=== PATIENT | male | born 1975 | race Caucasian/White ===

== ENCOUNTER 2019-04-22 14:22 | Emergency (ER) | payer OTHER ==
[~2019-04-22] VITALS: Ht 182.9 cm; Wt 127.0 kg
[~2019-04-22 14:22] MED LIST: CYCL10TA9 PO; GABA-488 PO; HEARTBURN MEDICATION PO; LISI-552 PO; NAPR-1070 PO; TRAM50TA2 PO
[2019-04-22] MEDS ORDERED: OMEP20TA7 PO (14:45)
[2019-04-22] MEDS ORDERED: ATOR10TA66 PO (14:45)
--- NOTE | 2019-04-22 15:07 | NUR ---
pt here by self alert gcs 15. in [place] pt at 1508. pt relates was at work yesterday and was c/o chest pain ,abd pain, dyspnea, sweating, n/v, bp was high. hr was 150. pt was sent home and said he couldnt come in here yesterday. currently pt somewhat vague with answers but c/o chest " prssure" rating 2. denies abd pain. denies dyspnea and no acute sighns of dyspnea noted. lungs cta bilaterally. abd soft and distended. pt says he feels " bloated". neg pain with palpation and neg pulsating massess notd. neg edema noted. tele applied by me shows st 103. bp machine is 147/97 p ox r/a is 95. done [place] pt at 1511.
[2019-04-22] MEDS ORDERED: ASPIRIN 81 MG CHEW (CHILDREN'S ASA) PO ONE (15:15)
--- NOTE | 2019-04-22 15:16 | ED Cardiac General ---
History of Present Illness General Chief Complaint: Cardiac/General Problems Stated Complaint: BP ISSUES Nursing Triage Note: PATIENT STATES THAT YESTERDAY AT WORK HE HAD AN EPISODE WHERE HE FELT HOT, HAD CHEST PAIN, DIAPHORESIS, TACHYCARDIA AND VOMITING. IT WAS ALSO NOTED THAT HE WAS PALE. HE DOES NOT RECALL HAVING PROBLEMS WITH THIS IN THE PAST AND FEELS BETTER TODAY. Source: patient Exam Limitations: no limitations History of Present Illness Date Seen by Provider: Apr 22, 2019 Time Seen by Provider: 15:12 Initial Comments To ER by private vehicle with reports of chest pain yesterday, nausea vomiting diaphoresis and general malaise yesterday. He states that at one point his blood pressure was up to 141/110 and his heart rate was up to 150. The symptoms occurred while he was at work at [employer]. They advised him to come to the hospital yesterday when he was expressing these symptoms but he chose not to, they again insisted that he be evaluated today even in the absence of symptoms, he finally decided to come to the emergency room today. He states that he doesn't feel completely back to normal but he does not have any chest pain or nausea today, just feels a little "off". He has a history of high cholesterol, smoking, obesity. He has a family history of heart disease. Timing/Duration: changing over time, resolved prior to arrival Severity: moderate Activities at Onset: none Prior CP/Workup: no prior cardiac workup NTG SL PRACTICE SPECIALIST: No ASA po PRACTICE SPECIALIST: No Associated Systoms: Diaphoresis, Nausea/Vomiting Allergies and Home Medications Allergies Coded Allergies: No Known Drug Allergies (Unverified , 12/07/12) Home Medications Atorvastatin Calcium Unknown Strength Tablet, Unknown Dose PO HS, (Reported) Gabapentin 300 Mg Capsule, 300 MG PO DAILY, (Reported) Lisinopril 20 Mg Tablet, 20 MG PO DAILY, (Reported) Tramadol HCl 50 Mg Tablet, 50 MG PO PRN, (Reported) Patient Home Medication List Home Medication List Reviewed: Yes Review of Systems Review of Systems Constitutional: see HPI, diaphoresis EENTM: No Symptoms Reported Respiratory: No Symptoms Reported Cardiovascular: See HPI, Chest Pain Gastrointestinal: See HPI, Nausea Genitourinary: No Symptoms Reported Musculoskeletal: no symptoms reported Skin: no symptoms reported Psychiatric/Neurological: No Symptoms Reported Endocrine: No Symptoms Reported Past Jmlpjdm-Tyqfra-Edvgtg Hx Patient Social History Alcohol Use: Denies Use Recreational Drug Use: No Smoking Status: Current Everyday Smoker Type Used: Cigarettes 2nd Hand Smoke Exposure: Yes Recent Foreign Travel: No Contact w/Someone Who Travel: No Recent Infectious Disease Expo: No Immunizations Up To Date Date of Influenza Vaccine: Jun 15, 2015 Seasonal Allergies Seasonal Allergies: Yes Past Medical History Surgeries: Yes (RECONSTRUCTIVE FACIAL SURGERY, HERNIA) Abdominal Respiratory: Yes (CHILDHOOD ASTHMA) Asthma Cardiac: Yes Hypertension Neurological: No Gastrointestinal: Yes Gastroesophageal Reflux Musculoskeletal: Yes (CHRONIC NECK AND BACK PAIN ) Degenerate Disk Disease, Chronic Back Pain Endocrine: No Cancer: No Psychosocial: No Integumentary: No Blood Disorders: No Physical Exam Vital Signs Vital Signs - First Documented 04/22/19 14:38 Temp 96.7 Pulse 105 Resp 20 B/P (MAP) 136/94 (108) Pulse Ox 97 Capillary Refill : Less Than 3 Seconds Height, Weight, BMI Height: 6'0" Weight: 280lbs. 0oz. 127.724849vd; 36.68 BMI Method:Actual General Appearance: No Apparent Distress, WD/WN HEENT: PERRL/EOMI, TMs Normal Respiratory: No Accessory Muscle Use, No Respiratory Distress Cardiovascular: Regular Rate, Rhythm, Normal Peripheral Pulses Gastrointestinal: Normal Bowel Sounds, Non Tender, Soft Extremity: Non Tender, No Calf Tenderness Neurologic/Psychiatric: Alert, Oriented x3 Skin: Normal Color, Warm/Dry Progress/Results/Core Measures Results/Orders Lab Results Laboratory Tests Test 04/22/19 15:15 Range/Units White Blood Count 8.2 4.3-11.0 10^3/uL Red Blood Count 4.88 4.35-5.85 10^6/uL Hemoglobin 14.8 13.3-17.7 G/DL Hematocrit 43 40-54 % Mean Corpuscular Volume 87 80-99 FL Mean Corpuscular Hemoglobin 30 25-34 PG Mean Corpuscular Hemoglobin Concent 35 32-36 G/DL Red Cell Distribution Width 13.2 10.0-14.5 % Platelet Count 265 130-400 10^3/uL Mean Platelet Volume 10.4 7.4-10.4 FL Neutrophils (%) (Auto) 55 42-75 % Lymphocytes (%) (Auto) 32 12-44 % Monocytes (%) (Auto) 8 0-12 % Eosinophils (%) (Auto) 5 0-10 % Basophils (%) (Auto) 1 0-10 % Neutrophils # (Auto) 4.6 1.8-7.8 X 10^3 Lymphocytes # (Auto) 2.6 1.0-4.0 X 10^3 Monocytes # (Auto) 0.6 0.0-1.0 X 10^3 Eosinophils # (Auto) 0.4 H 0.0-0.3 10^3/uL Basophils # (Auto) 0.0 0.0-0.1 10^3/uL Prothrombin Time 11.9 L 12.2-14.7 SEC INR Comment 0.9 0.8-1.4 Activated Partial Thromboplast Time 26 24-35 SEC Sodium Level 138 135-145 MMOL/L Potassium Level 4.3 3.6-5.0 MMOL/L Chloride Level 104 98-107 MMOL/L Carbon Dioxide Level 28 21-32 MMOL/L Anion Gap 6 5-14 MMOL/L Blood Urea Nitrogen 19 H 7-18 MG/DL Creatinine 0.78 0.60-1.30 MG/DL Estimat Glomerular Filtration Rate > 60 BUN/Creatinine Ratio 24 Glucose Level 99 70-105 MG/DL Calcium Level 9.8 8.5-10.1 MG/DL Corrected Calcium 9.6 8.5-10.1 MG/DL Magnesium Level 1.6 1.6-2.4 MG/DL Total Bilirubin 0.2 0.1-1.0 MG/DL Aspartate Amino Transf (AST/SGOT) 17 5-34 U/L Alanine Aminotransferase (ALT/SGPT) 25 0-55 U/L Alkaline Phosphatase 104 40-136 U/L Myoglobin 32.2 10.0-92.0 NG/ML Troponin I < 0.028 <0.028 NG/ML B-Type Natriuretic Peptide < 10.0 <100.0 PG/ML Total Protein 7.0 6.4-8.2 GM/DL Albumin 4.3 3.2-4.5 GM/DL Lipase 20 8-78 U/L My Orders Orders - GARO STEWARD APRN Cbc With Automated Diff (04/22/19 15:11) Magnesium (04/22/19 15:11) Chest 1 View, Ap/Pa Only (04/22/19 15:11) Ekg Tracing (04/22/19 15:11) Cardiac Profile 1 (04/22/19 15:11) Comprehensive Metabolic Panel (04/22/19 15:11) Myoglobin Serum (04/22/19 15:11) Protime With Inr (04/22/19 15:11) Partial Thromboplastin Time (04/22/19 15:11) O2 (04/22/19 15:11) Monitor-Rhythm Ecg Trace Only (04/22/19 15:11) Lipid Panel (04/23/19 06:00) Ed Iv/Invasive Line Start (04/22/19 15:11) Lipase (04/22/19 15:11) BNP (04/22/19 15:11) Aspirin Chewable Tablet (Baby Aspirin Ch (04/22/19 15:15) Medications Given in ED Current Medications Medications Dose Ordered Sig/Jacey Route Start Time Stop Time Status Last Admin Dose Admin Aspirin 324 mg ONCE ONCE PO 04/22/19 15:15 04/22/19 15:16 DC 04/22/19 15:23 324 MG Vital Signs/I&O 04/22/19 14:38 Temp 96.7 Pulse 105 Resp 20 B/P (MAP) 136/94 (108) Pulse Ox 97 Blood Pressure Mean: 108 Departure Communication (Admissions) 1621-discussed observation and repeat troponin at the two-hour jack with patient. He does not want to wait, he'll return for any recurrence of symptoms and follow-up with Dr. Neely on Saturday. Impression Primary Impression: Chest pain Qualified Codes: R07.9 - Chest pain, unspecified Disposition: 01 HOME, SELF-CARE Condition: Stable Departure-Patient Inst. Decision time for Depature: 16:13 Referrals: NATE NEELY MD ,LOCAL PHYSICIAN (PCP) Primary Care Physician Patient Instructions: Chest Pain Add. Discharge Instructions: 1. I made an appointment for you with Dr. Neely on 04/27/19 at 12:50 PM. All discharge instructions reviewed with patient and/or family. Voiced understanding. Copy Copies To 1: NATE NEELY MD, PETER J APRN Apr 22, 2019 15:15
--- NOTE | 2019-04-22 15:17 | NUR ---
labs to lab by me
[2019-04-22 15:21] LABS: BASOPHILS % (AUTO) 1 % (0-10); EOSINOPHILS # (AUTO) 0.4 10^3/uL (0.0-0.3); EOSINOPHILS % (AUTO) 5 % (0-10); HEMATOCRIT 43 % (40-54); HEMOGLOBIN 14.8 G/DL (13.3-17.7); LYMPHOCYTES # (AUTO) 2.6 X 10^3 (1.0-4.0); LYMPHOCYTES % (AUTO) 32 % (12-44); MEAN CORPUSCULAR HEMOGLOBIN 30 PG (25-34); MEAN CORPUSCULAR HGB CONC 35 G/DL (32-36); MEAN CORPUSCULAR VOLUME 87 FL (80-99); MEAN PLATELET VOLUME 10.4 FL (7.4-10.4); MONOCYTES # (AUTO) 0.6 X 10^3 (0.0-1.0); MONOCYTES % (AUTO) 8 % (0-12); NEUTROPHILS # (AUTO) 4.6 X 10^3 (1.8-7.8); NEUTROPHILS % (AUTO) 55 % (42-75); PLATELET COUNT 265 10^3/uL (130-400); RED CELL DISTRIBUTION WIDTH 13.2 % (10.0-14.5); WHITE BLOOD COUNT 8.2 10^3/uL (4.3-11.0)
--- NOTE | 2019-04-22 15:27 | NUR ---
ekg by me
[2019-04-22 15:40] LABS: INR 0.9 (0.8-1.4); PROTHROMBIN TIME PATIENT 11.9 SEC (12.2-14.7)
--- NOTE | 2019-04-22 15:40 | Diagnostic Imaging Report ---
INDICATION: Hypertension. EXAMINATION: Portable chest at 3:31 p.m. FINDINGS: Heart size and pulmonary vascularity are normal. Lungs are clear. There are no effusions or pneumothoraces. IMPRESSION: Negative chest. Dictated by: Dictated on workstation # [id number]
[2019-04-22 15:43] LABS: ALANINE AMINOTRANSFERASE 25 U/L (0-55); ALBUMIN 4.3 GM/DL (3.2-4.5); ALKALINE PHOSPHATASE 104 U/L (40-136); BILIRUBIN,TOTAL 0.2 MG/DL (0.1-1.0); BUN/CREATININE RATIO 24; CALCIUM 9.8 MG/DL (8.5-10.1); CARBON DIOXIDE 28 MMOL/L (21-32); CHLORIDE 104 MMOL/L (98-107); CREATININE SERUM 0.78 MG/DL (0.60-1.30); GFR ESTIMATED > 60; GLUCOSE 99 MG/DL (70-105); LIPASE 20 U/L (8-78); MAGNESIUM 1.6 MG/DL (1.6-2.4); POTASSIUM 4.3 MMOL/L (3.6-5.0); SODIUM 138 MMOL/L (135-145)
--- NOTE | 2019-04-22 15:58 | NUR ---
Rosanna quintana in [facility] - 04/22/19 at 1600 by [id number] i got a hold of pharmacy
--- NOTE | 2019-04-22 16:18 | NUR ---
Note undone in EDM - 04/22/19 at 1620 by [id number] both parents in room. pt sleeping w/o sighns of dyspnea noted. parents relate no more seizures since the ativan. ausc hr 120 reg ausc resp 24 normalrecheck temp 97.8 p ox r/a is 97. i called floor for mini infuser for antibiotic.
--- NOTE | 2019-04-22 16:24 | NUR ---
apparantely no 2nd trop now. pt is ok to d/c v/o
[2019-04-22 16:33] VITALS: BP 124/85
--- NOTE | 2019-04-22 16:33 | NUR ---
d/c instructions to pt. no scripts given. pt left ambulatory by self. pt knows f/u. i did not go over positive handtyped by dr information on the chart. pt said he read it after i went to cause pt requested work release. work release given. pt said d/cd his iv. pt already off tele as well. d/c vs bp machine is 124/85 ausc hr 100 reg ausc resp 20 normal recheck temp 97.5 p ox r/a is 94. pt said he couldnt wait for 2nd trop and had to leave now.
== END 2019-04-22 16:33 | disposition home or self-care (01) ==
LOC: EDUNIT# 14:22 → ER 14:23
DX: R07.9 Chest pain, unspecified (principal); E78.00 Pure hypercholesterolemia, unspecified; E66.9 Obesity, unspecified; J45.909 Unspecified asthma, uncomplicated; I10 Essential (primary) hypertension; K21.9 Gastro-esophageal reflux disease without esophagitis; F17.210 Nicotine dependence, cigarettes, uncomplicated; Z82.49 Family history of ischemic heart disease and other diseases of the circulatory system; Z98.890 Other specified postprocedural states; Z68.38 Body mass index [BMI] 38.0-38.9, adult
CPT/HCPCS: 36415; 71045; 80053; 83690; 83735; 83874; 83880; 84484; 85025; 85610; 85730; 93005; 93041

== ENCOUNTER → 2020-07-13 | Outpatient (CLI) | payer SELFPAY ==
[~2020-07-13] MED LIST changes: +ATOR10TA66 PO; +OMEP20TA7 PO; -TRAM50TA2 PO; +TRM50T PO
--- NOTE | 2020-07-13 16:07 | Diagnostic Imaging Report ---
PROCEDURE: MR imaging cervical spine without contrast. TECHNIQUE: Multiplanar, multisequence MR imaging of the cervical spine was performed without contrast. INDICATION: Increasing neck pain. No prior studies are available for comparison. Curvature and alignment of the cervical spine is normal. Vertebral body marrow signal is normal. No geographic marrow lesion is seen. There is some mild disc desiccation noted but disc heights are fairly well-maintained. Cervical cord shows normal homogeneous signal intensity with normal morphology. Craniocervical junction is unremarkable. C2-C3: Central canal is patent. Neural foramina are patent. C3-C4: Endplate osteophytes indent the ventral thecal sac but central canal and neural foramina remain patent. C4-C5: Central canal and neural foramina are widely patent. C5-C6: Broad-based disc/osteophyte complex flattens the ventral thecal sac. There is very mild narrowing of the canal. Neural foramina appear patent. C6-C7: Endplate osteophytes indent the ventral thecal sac and produce mild narrowing of the central canal. Neural foramina are patent. C7-T1: Central canal and neural foramina are widely patent. IMPRESSION: Generalized cervical spondylosis. There is mild central canal narrowing described level by level above. No focal disc protrusion or neural foraminal stenosis is identified. Dictated by: Dictated on workstation # [id number]
--- NOTE | 2020-07-13 16:07 | Diagnostic Imaging Report ---
INDICATION: Back pain and left arm numbness. TECHNIQUE: Multiplanar, multisequence imaging of the thoracic spine was performed without contrast. COMPARISON: No prior studies are available for comparison. FINDINGS: Curvature and alignment of the thoracic spine is normal. Vertebral body heights are well-maintained. No geographic marrow lesion is identified apart from a probable benign hemangiolipoma within the T7 vertebral body. There is some generalized thoracic degenerative disc disease with variable disc space narrowing and desiccation. Minimal left paramidline disc bulge is identified at the T3-T4 level but no central canal or neural foraminal narrowing is seen. Minimal midline disc bulge T5-T6 levels noted but no central canal narrowing is seen. A left para-midline disc bulge at T7-T8 level does indent the ventral thecal sac but no significant central canal or neural foraminal narrowing is seen. Neural foramina are patent. Paraspinous tissues are unremarkable. IMPRESSION: Generalized thoracic spondylosis with mild disc bulging described level by level above. However, no resultant central canal or neural foraminal narrowing is identified. Dictated by: Dictated on workstation # [id number]
--- NOTE | 2020-07-13 16:12 | Diagnostic Imaging Report ---
PROCEDURE: MRI lumbar spine. TECHNIQUE: Multiplanar, multisequence MRI of the lumbar spine was performed without contrast. INDICATION: Back pain and left arm numbness. COMPARISON: No prior studies are available for comparison. FINDINGS: Curvature and alignment of the lumbar spine is normal. Vertebral body heights are maintained. No acute compression fracture is seen. No geographic marrow lesion is seen. There is some desiccation of the discs at L3-L4, L4-L5, and L5-S1 levels. Conus is unremarkable at the L1-L2 level. T12-L1: Central canal and neuroforamina are widely patent. L1-L2: Central canal and neuroforamina appear widely patent. L2-L3: Central canal and neuroforamina are patent. L3-L4: Broad-based disc/osteophyte complex flattens the ventral thecal sac. There is also ligamentous thickening and facet changes. This does create some mild trefoil narrowing of the central canal. There is also moderate narrowing of the lateral recesses bilaterally. There is also moderate bilateral neuroforaminal narrowing. L4-L5: Broad-based disc/osteophyte complex indents the ventral thecal sac. This produces mild narrowing of the central canal. There is significant narrowing of bilateral lateral recesses. There is also moderate bilateral neuroforaminal narrowing. L5-S1: Broad-based disc bulging is present but central canal remains patent. Lateral recesses show moderate narrowing. There is also moderate bilateral neuroforaminal narrowing. Paraspinous tissues are unremarkable. IMPRESSION: Lower lumbar spondylosis with mild central canal, lateral recess, and neuroforaminal narrowing, described level by level above. Dictated by: Dictated on workstation # [id number]
== END ==
LOC: RAD 14:45
PROVIDERS: ATTEND Nurse Practitioner
DX: M47.812 Spondylosis without myelopathy or radiculopathy, cervical region (principal); M47.814 Spondylosis without myelopathy or radiculopathy, thoracic region; M47.816 Spondylosis without myelopathy or radiculopathy, lumbar region; M51.24 Other intervertebral disc displacement, thoracic region; M48.02 Spinal stenosis, cervical region; M48.061 Spinal stenosis, lumbar region without neurogenic claudication
CPT/HCPCS: 72141; 72146; 72148

== ENCOUNTER 2021-05-22 16:36 | Emergency (ER) | payer SELFPAY ==
[~2021-05-22] VITALS: Ht 182.8 cm; Wt 117.0 kg
[~2021-05-22 16:36] MED LIST changes: -LISI-552 PO; +LISI20TA26 PO
[2021-05-22] MEDS ORDERED: ASPIRIN 81 MG CHEW (CHILDREN'S ASA) ONE (16:42)
[2021-05-22] MEDS ORDERED: NITROGLYCERIN 0.4 MG SL TABS BTL 25'S SL ONE (16:42)
[2021-05-22] MEDS ORDERED: ASPIRIN 81 MG CHEW (CHILDREN'S ASA) PO ONE (17:00)
--- NOTE | 2021-05-22 17:01 | ED Chest Pain ---
General Chief Complaint: Chest Pain Stated Complaint: CHEST PAIN Source: patient Exam Limitations: no limitations History of Present Illness Date Seen by Provider: May 22, 2021 Time Seen by Provider: 16:40 Initial Comments This is a 45-year-old male presented to the ER with complaints of midsternal chest pain that started around 2:00 this afternoon. States that pain went away abruptly and returned again approximate 30 minutes prior to arrival. Describes as pressure that radiates into his back and down both of his arms. Allergies and Home Medications Allergies Coded Allergies: No Known Drug Allergies (Unverified , 12/07/12) Patient Home Medication List Atorvastatin Calcium (Atorvastatin Calcium) Unknown Strength Tablet, Unknown Dose PO HS, (Reported) Entered as Reported by: SHIRA DIOP on 04/22/19 1445 Gabapentin (Gabapentin) 300 Mg Capsule, 300 MG PO DAILY, (Reported) Entered as Reported by: THOMAS TIDWELL on 11/16/15 1203 Lisinopril (Lisinopril) 20 Mg Tablet, 20 MG PO DAILY, (Reported) Entered as Reported by: THOMAS TIDWELL on 11/16/15 1203 Omeprazole (Omeprazole) Unknown Strength Tablet.dr, Unknown Dose PO, (Reported) Entered as Reported by: SHIRA DIOP on 04/22/19 1445 Tramadol HCl (Tramadol HCl) 50 Mg Tablet, 50 MG PO PRN, (Reported) Entered as Reported by: THOMAS TIDWELL on 11/16/15 1203 Past Dzievbl-Yojgza-Uspjlx Hx Seasonal Allergies Seasonal Allergies: Yes Past Medical History Surgeries: Yes (RECONSTRUCTIVE FACIAL SURGERY, HERNIA) Abdominal Respiratory: Yes (CHILDHOOD ASTHMA) Asthma Cardiac: Yes Hypertension Neurological: No Gastrointestinal: Yes Gastroesophageal Reflux Musculoskeletal: Yes (CHRONIC NECK AND BACK PAIN ) Degenerate Disk Disease, Chronic Back Pain Endocrine: No Cancer: No Psychosocial: No Integumentary: No Blood Disorders: No Physical Exam Vital Signs Vital Signs - First Documented 05/22/21 16:44 Temp 36.3 Pulse 95 Resp 19 B/P (MAP) 138/90 (106) Pulse Ox 94 O2 Delivery Room Air Capillary Refill : Height, Weight, BMI Height: 6'0" Weight: 280lbs. 0oz. 127.189041bf; 36.68 BMI Method:Actual Progress/Results/Core Measures Results/Orders Lab Results Laboratory Tests Test 05/22/21 16:44 05/22/21 19:16 Range/Units White Blood Count 9.6 4.3-11.0 10^3/uL Red Blood Count 5.10 4.30-5.52 10^6/uL Hemoglobin 15.7 13.3-17.7 g/dL Hematocrit 45 40-54 % Mean Corpuscular Volume 88 80-99 fL Mean Corpuscular Hemoglobin 31 25-34 pg Mean Corpuscular Hemoglobin Concent 35 32-36 g/dL Red Cell Distribution Width 12.4 10.0-14.5 % Platelet Count 302 130-400 10^3/uL Mean Platelet Volume 9.9 9.0-12.2 fL Immature Granulocyte % (Auto) 0 % Neutrophils (%) (Auto) 63 42-75 % Lymphocytes (%) (Auto) 26 12-44 % Monocytes (%) (Auto) 6 0-12 % Eosinophils (%) (Auto) 3 0-10 % Basophils (%) (Auto) 1 0-10 % Neutrophils # (Auto) 6.0 1.8-7.8 10^3/uL Lymphocytes # (Auto) 2.5 1.0-4.0 10^3/uL Monocytes # (Auto) 0.6 0.0-1.0 10^3/uL Eosinophils # (Auto) 0.3 0.0-0.3 10^3/uL Basophils # (Auto) 0.1 0.0-0.1 10^3/uL Immature Granulocyte # (Auto) 0.0 0.0-0.1 10^3/uL Prothrombin Time 12.1 L 12.2-14.7 SEC INR Comment 0.9 0.8-1.4 Activated Partial Thromboplast Time 26 24-35 SEC D-Dimer <= 0.27 0.00-0.49 UG/ML Sodium Level 139 135-145 MMOL/L Potassium Level 4.6 3.6-5.0 MMOL/L Chloride Level 106 98-107 MMOL/L Carbon Dioxide Level 24 21-32 MMOL/L Anion Gap 9 5-14 MMOL/L Blood Urea Nitrogen 22 H 7-18 MG/DL Creatinine 0.81 0.60-1.30 MG/DL Estimat Glomerular Filtration Rate 103 BUN/Creatinine Ratio 27 Glucose Level 108 H 70-105 MG/DL Calcium Level 9.8 8.5-10.1 MG/DL Corrected Calcium 8.5-10.1 MG/DL Magnesium Level 1.9 1.6-2.4 MG/DL Total Bilirubin 0.3 0.1-1.0 MG/DL Aspartate Amino Transf (AST/SGOT) 21 5-34 U/L Alanine Aminotransferase (ALT/SGPT) 27 0-55 U/L Alkaline Phosphatase 94 40-136 U/L Total Creatine Kinase 620 H 519 H 30-200 U/L Creatine Kinase MB 2.3 2.0 <6.6 NG/ML Myoglobin 79.9 62.6 10.0-92.0 NG/ML Troponin I < 0.028 < 0.028 <0.028 NG/ML Total Protein 7.6 6.4-8.2 GM/DL Albumin 4.6 H 3.2-4.5 GM/DL Lipase 10 8-78 U/L My Orders Orders - ANA PAULA LR SENIOR WEB ARCHITECT Cbc With Automated Diff (05/22/21 16:57) Magnesium (05/22/21 16:57) Chest 1 View, Ap/Pa Only (05/22/21 16:57) Ekg Tracing (05/22/21 16:57) Comprehensive Metabolic Panel (05/22/21 16:57) Myoglobin Serum (05/22/21 16:57) Protime With Inr (05/22/21 16:57) Partial Thromboplastin Time (05/22/21 16:57) O2 (05/22/21 16:57) Monitor-Rhythm Ecg Trace Only (05/22/21 16:57) Lipid Panel (05/23/21 06:00) Ed Iv/Invasive Line Start (05/22/21 16:57) Creatine Kinase (05/22/21 16:57) Creatine Kinase Mb (05/22/21 16:57) Lipase (05/22/21 16:57) Troponin I (05/22/21 16:57) Aspirin Chewable Tablet (Baby Aspirin Ch (05/22/21 17:00) Nitroglycerin 0.4 Mg Btl 25's (Nitrostat (05/22/21 17:15) Fibrin Degradation Products (05/22/21 16:44) Troponin I (05/22/21 19:30) Creatine Kinase Mb (05/22/21 19:30) Creatine Kinase (05/22/21 19:30) Myoglobin Serum (05/22/21 19:30) Medications Given in ED Current Medications Medications Dose Ordered Sig/Jacey Route Start Time Stop Time Status Last Admin Dose Admin Aspirin 81 mg STK-MED ONCE .ROUTE 05/22/21 16:42 05/22/21 16:47 DC 05/22/21 16:52 324 MG Nitroglycerin 0.4 mg UD PRN SL 05/22/21 17:15 05/22/21 17:07 0.4 MG Vital Signs/I&O 05/22/21 16:44 Temp 36.3 Pulse 95 Resp 19 B/P (MAP) 138/90 (106) Pulse Ox 94 O2 Delivery Room Air Initial ECG Impression Date: May 22, 2021 Initial ECG Impression Time: 16:43 Diagnostic Imaging Diagonstic Imaging: Xray Plain Films/CT/US/NM/MRI: chest Comments [facility], [place] NAME: ROSALES HURT [facility] REC#: [id number] PT STATUS: REG ER : 1975 PHYSICIAN: ANA PAULA LR SENIOR WEB ARCHITECT ADMIT DATE: 05/22/21/ER Draft Date of Exam:05/22/21 CHEST 1 VIEW, AP/PA ONLY INDICATION: Chest pain COMPARISON: 04/22/2019. FINDINGS: Single frontal view of the chest demonstrates normal heart size and pulmonary vascularity. The lungs are well aerated and clear. No large pleural effusion or pneumothorax is seen. The visualized osseous structures show no acute abnormalities. IMPRESSION: 1. No acute cardiopulmonary process. Dictated on workstation # [id number] Dict: 05/22/21 1825 Trans: 05/22/21 1826 [id number] Interpreted by: AYANNA TUCKER MD Electronically signed by: Departure Impression Primary Impression: Chest pain Disposition: AGAINST MEDICAL ADVICE Condition: Against Medical Advice Departure-Patient Inst. Decision time for Depature: 20:02 Referrals: [facility] (PCP/Family) Primary Care Physician NATE NEELY MD Patient Instructions: Chest Pain, Adult ED Add. Discharge Instructions: Plan: 1. Call Dr. Neely office tomorrow to schedule follow-up appointment. 2. Return to ER for any chest pain, new, concerning, worsening symptoms. All discharge instructions reviewed with patient and/or family. Voiced understanding.Plan; Work/School Note: Work Release Form Date Seen in the Emergency Department: May 22, 2021 Return to Work: May 24, 2021 Restrictions: No Restrictions ANA PAULA LR APRN May 22, 2021 17:01
[2021-05-22 17:02] LABS: BASOPHILS # (AUTO) 0.1 10^3/uL (0.0-0.1); BASOPHILS % (AUTO) 1 % (0-10); EOSINOPHILS # (AUTO) 0.3 10^3/uL (0.0-0.3); EOSINOPHILS % (AUTO) 3 % (0-10); HEMATOCRIT 45 % (40-54); HEMOGLOBIN 15.7 g/dL (13.3-17.7); LYMPHOCYTES # (AUTO) 2.5 10^3/uL (1.0-4.0); LYMPHOCYTES % (AUTO) 26 % (12-44); MEAN CORPUSCULAR HEMOGLOBIN 31 pg (25-34); MEAN CORPUSCULAR HGB CONC 35 g/dL (32-36); MEAN CORPUSCULAR VOLUME 88 fL (80-99); MEAN PLATELET VOLUME 9.9 fL (9.0-12.2); MONOCYTES # (AUTO) 0.6 10^3/uL (0.0-1.0); MONOCYTES % (AUTO) 6 % (0-12); NEUTROPHILS % (AUTO) 63 % (42-75); PLATELET COUNT 302 10^3/uL (130-400); WHITE BLOOD COUNT 9.6 10^3/uL (4.3-11.0)
[2021-05-22 17:06] LABS: ALBUMIN 4.6 GM/DL (3.2-4.5); CHLORIDE 106 MMOL/L (98-107); POTASSIUM 4.6 MMOL/L (3.6-5.0); SODIUM 139 MMOL/L (135-145)
[2021-05-22 17:07] LABS: CALCIUM 9.8 MG/DL (8.5-10.1)
[2021-05-22 17:08] LABS: GLUCOSE 108 MG/DL (70-105); TOTAL PROTEIN 7.6 GM/DL (6.4-8.2)
[2021-05-22 17:09] LABS: CARBON DIOXIDE 24 MMOL/L (21-32)
[2021-05-22 17:10] LABS: BILIRUBIN,TOTAL 0.3 MG/DL (0.1-1.0)
[2021-05-22 17:12] LABS: ALKALINE PHOSPHATASE 94 U/L (40-136); CREATININE SERUM 0.81 MG/DL (0.60-1.30); GFR ESTIMATED 103
[2021-05-22 17:13] LABS: BUN/CREATININE RATIO 27
[2021-05-22 17:15] LABS: ALANINE AMINOTRANSFERASE 27 U/L (0-55); MAGNESIUM 1.9 MG/DL (1.6-2.4)
[2021-05-22] MEDS ORDERED: NITROGLYCERIN 0.4 MG SL TABS BTL 25'S SL PRN (17:15)
[2021-05-22 17:16] LABS: CREATINE KINASE 620 U/L (30-200); LIPASE 10 U/L (8-78)
[2021-05-22 17:23] LABS: CREATINE KINASE MB 2.3 NG/ML (<6.6)
[2021-05-22 17:43] LABS: FIBRIN DEGRADATION PRODUCTS <= 0.27 UG/ML (0.00-0.49); INR 0.9 (0.8-1.4); PARTIAL THROMBOPLASTIN TIME 26 SEC (24-35); PROTHROMBIN TIME PATIENT 12.1 SEC (12.2-14.7)
--- NOTE | 2021-05-22 18:27 | Diagnostic Imaging Report ---
INDICATION: Chest pain COMPARISON: 04/22/2019. FINDINGS: Single frontal view of the chest demonstrates normal heart size and pulmonary vascularity. The lungs are well aerated and clear. No large pleural effusion or pneumothorax is seen. The visualized osseous structures show no acute abnormalities. IMPRESSION: 1. No acute cardiopulmonary process. Dictated by: Dictated on workstation # [id number]
[2021-05-22 19:39] LABS: CREATINE KINASE 519 U/L (30-200)
[2021-05-22 20:00] VITALS: BP 121/67
== END 2021-05-22 20:13 | disposition left against medical advice (07) ==
LOC: EDUNIT# 16:36 → ER 16:39
DX: R07.9 Chest pain, unspecified (principal); J45.909 Unspecified asthma, uncomplicated; I10 Essential (primary) hypertension; K21.9 Gastro-esophageal reflux disease without esophagitis; Z79.899 Other long term (current) drug therapy
CPT/HCPCS: 36415; 71045; 80053; 82550; 82553; 83690; 83735; 83874; 84484; 85025; 85379; 85610; 85730; 93005; 93041

== ENCOUNTER → 2021-06-27 | Outpatient (CLI) | payer SELFPAY | LOC: CARD 13:00 | PROVIDERS: ATTEND Internal Medicine Cardiovascular Disease | DX: I11.9 Hypertensive heart disease without heart failure (principal); I25.10 Atherosclerotic heart disease of native coronary artery without angina pectoris | CPT/HCPCS: 93306 ==